=== PATIENT | female | born 1955 | race Caucasian/White ===

== ENCOUNTER 2016-06-14 09:35 | Inpatient (IN) | payer OTHER ==
[2016-06-14] VITALS (10 sets, daily range): BP systolic 103–143; BP diastolic 51–91; PULSE 60–99; RESP 12–18; O2SAT 94–97
[~2016-06-14] VITALS: Ht 165.1 cm; Wt 104.0 kg
[~2016-06-14 09:35] MED LIST: CeFAZolin Inj 2 GM in IV Premix 1 EACH IV ONE; DICL75TA6 PO; DULO60CA42 PO; FLUT16SP NS; THYR90TA PO; Vancomycin Inj 1,500 MG in 0.9% Sodium Chloride 500 ML IV ONE; probiotic
[2016-06-14] MEDS ORDERED: CeFAZolin Inj 2 gm / 50mL D5W IV ONE (09:36)
[2016-06-14] MEDS: Lactated Ringer's 1,000 ML IV SCH ×3 (09:38→19:29)
[2016-06-14] MEDS ORDERED: TYLENOL PO (09:56)
[2016-06-14] MEDS ORDERED: MARIJUANA INHALATION (09:56)
[2016-06-14] MEDS ORDERED: ALPR0.5T PO (09:56)
[2016-06-14] MEDS ORDERED: Bupivacaine Liposome 1.3% 20 mL Inj NERVEBLOCK ONE (10:35)
[2016-06-14] MEDS ORDERED: Vancomycin 1 Gm/200 mL NS Premix IV ONE (10:40)
[2016-06-14] MEDS ORDERED: Acetaminophen IV 1,000 mg IV ONE (10:40)
[2016-06-14] MEDS ORDERED: Tranexamic Acid 100 mg/mL 10 mL Inj ONE (10:53)
[2016-06-14] MEDS ORDERED: Lactated Ringer's 1,000 ML IV SCH (10:54)
[2016-06-14] MEDS ORDERED: 0.9% Sodium Chloride 200 ML ONE (10:54)
[2016-06-14] MEDS ORDERED: Lactated Ringer's 500 ML IV PRN (10:54)
--- NOTE | 2016-06-14 10:54 | PCM.HPANE ---
Patient Data Date of Service: Jun 14, 2016 (2235) Surgeon Admitting Provider: Attending Provider:Ubaldo Mckay DO Primary Care Physician:Lavonne Luis PA-C Other Provider:Augustine Gann Anesthesia Reason for Visit Left Knee Arthritis Ht/WT & BMI Height (Feet): 5 Height (Inches): 5.00 Weight (Kilograms): 102.0 Body Mass Index 37.00 Allergies Coded Allergies: codeine (Verified Allergy, Unknown, 06/13/16) Past Anesthesia History Anesthesia History: Denies:: Anesthesia Reactions Diabetes History Hx Diabetes?: No Medications Home Meds Incl Beta Amado: No Reported Medications [Tylenol] No Conflict Dxmut293 Mg PO PRN 06/14/16 [Marijuana] No Conflict Check Inhalation Prn 06/14/16 Alprazolam (Xanax)0.5 Mg Tablet0.5 Mg PO TID PRN For Anxiety Ref 0 06/14/16 [probiotic] No Conflict CheckUnknown Dose DAILY 06/09/16 Fluticasone Propionate (Fluticasone Propionate Nasal)16 Gm [place].susp2 [place] NS BID #16 GM Ref 0 06/09/16 Diclofenac ER 75 Mg [id number] Mg PO BID 06/09/16 Duloxetine (Cymbalta)60 Mg Capsule.dr60 Mg PO DAILY Ref 0 06/09/16 Thyroid,Pork ([place] Thyroid)90 Mg [id number] Mg PO DAILY 06/09/16 History History of ENT Problems?: Yes HEENT History: Positive for:: TMJ (wears nightguard) Denture Type: None Teeth Condition: Within Normal Limits Hx of Heart Problems?: No Cardiovascular History: Denies:: Coronary Artery Disease Irregular Heartbeat Hx of Respiratory Problem?: No Respiratory History: Denies:: Oxygen Administration Use of C-PAP Machine Hx Neurologic Problems?: Yes Neurological History: Positive for:: Headaches (optical migraines) Denies:: CVA Multiple Sclerosis Parkinson's Disease Seizures Hx of GI Problems?: Yes Other GI Pertinent History: prior hx of gastric bypass, gastric band, band removal Hx of Problems?: No Female Hx: Denies:: Currently Skin History: Positive for:: 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) Hx Musculoskeletal Problems?: Yes Musculoskeletal History: Positive for:: Fibromyalgia Musculoskeletal Trauma (left knee current admission problem) Osteoarthritis Hx of Psycho/Social Problems?: Yes Hx Surgeries?: Yes (shoulder ligament, gastric bypass, band removal, ) Hx Any Other Health Problems?: Yes Other History: Positive for:: Thyroid Disease Denies:: Cancer Hx Diabetes: No Hx Alcohol Use: YesAlcoholic Drinks Per Day: 2-3 glasses wine weeklyHx Substance Use: Yes (cannabis)Have You Smoked inLast 12 mo: No Stop/Bang S-Snoring: Do You Snore Loudly: No T-Tired: feel tired, fatigued: No O-Obsered: Observed not breath: No P-Blood Pressure: treated: No B- Body Mass Index > 35 kg/m2: Yes A- Age over 50: Yes N- Neck Large Circumference: No G- Gender Male: No JIMMIE Total Score: 2 JIMMIE Risk Assessment: Low Risk, <3 Yes Risk Assessment Category Category 1A: Patient has history of documented sleep apnea, and HAS NOT received any narcotic, sedative or anesthesia administration during this stay. Category 1B: Patient has history of documented sleep apnea, and HAS received any narcotic , sedative or anesthesia administration during this stay Category 2: Patient has SUSPECTED Obstructive Sleep Apnea, and HAS received any narcotic , sedative or anesthesia administration during this stay. Category 3: Patient has SUSPECTED Obstructive Sleep Apnea and HAS NOT received narcotic, sedative or anesthesia administration during this stay. Category 4: Outpatient in Procedural Areas with known sleep apnea or who screen positive for High Risk via the STOP/BANG questionnaire. Exam Exam Vital Signs Vital Signs Date Time Temp Pulse Resp B/P Pulse Ox O2 Delivery O2 Flow Rate FiO2 06/14/16 10:09 36.9 82 18 119/91 95 Room Air General Appearance: Alert, Oriented X3, Moderate Distress (anxiety wrt piv access) HEENT/AIRWAY: MP 1 Lungs: Crackles Heart: Exam Unremarkable Meds/Labs/Diagnostics Admission Meds Current Medications Lactated Ringer's (Lr) 1,000 ml @ 120 mls/hr Q8H20M IV Last administered on t 09:38; Start 06/14/16 at 05:00; Stop 06/14/16 at 13:19 Plan Impression Patient chart reviewed, patient interviewed and anesthestic plan with risks, benefits, and alternatives discussed, and informed consent obtained. NPO per Anesth. Guidelines: Yes ASA Physical Status: ASA2 Mod Systemic Disease Anesthetic Plan: GA, Regional Block (femoral SS), Ultra Sound Bene/Risks/Altern/Consents: Yes HP Complete Prior to Induction: Yes Joseph Gonzales MD Jun 14, 2016 10:54
[2016-06-14] MEDS ORDERED: Phenylephrine 10,000 mCg/mL Inj IVPUSH PRN (10:55)
[2016-06-14] MEDS ORDERED: Ondansetron 2 mg/mL 2 mL Inj IVPUSH PRN ×2 (10:55→13:55)
[2016-06-14] MEDS ORDERED: EPHEDrine Sulfate 50 mg/mL Inj IVPUSH PRN (10:55)
[2016-06-14] MEDS ORDERED: MetoCLOpramide 5 mg/mL 2 mL Inj IVPUSH PRN (10:55)
[2016-06-14] MEDS ORDERED: HYDROmorphone 1 mg/mL Inj IVPUSH PRN (10:55)
[2016-06-14] MEDS ORDERED: Dexamethasone 4 mg/mL Inj IVPUSH PRN (10:55)
[2016-06-14] MEDS ORDERED: MethylprednisoLONE Depot 80 mg/mL Inj INJ ONE (11:36)
[2016-06-14] MEDS ORDERED: Lactated Ringer's 1,000 ML IV ONE (12:17)
[2016-06-14] MEDS ORDERED: Bupivacaine Liposome 1.3% 20 mL Inj INFILTRATE ONE ×2 (12:18→12:50)
[2016-06-14] MEDS ORDERED: 0.9% Sodium Chloride 10 mL Inj INFILTRATE ONE ×2 (12:19→12:50)
[2016-06-14] MEDS ORDERED: Bupivacaine-MPF 0.25%/EPI 30 mL Inj INJ ONE (12:51)
[2016-06-14] MEDS ORDERED: Magnesium Hydroxide 10 mL Oral Concentration PO PRN (13:55)
[2016-06-14] MEDS ORDERED: Polyethylene Glycol (PEG) 17 Gm Powder PO PRN (13:55)
[2016-06-14] MEDS ORDERED: diphenhydrAMINE 25 mg Capsule PO PRN (13:55)
[2016-06-14] MEDS ORDERED: ALPRAZolam 0.5 mg Tablet PO PRN (14:00)
--- NOTE | 2016-06-14 14:07 | PCM.ANEP1 ---
Post Anesthesia Phase 1 PACU Phase 1 Assessment Date of Service: Jun 14, 2016 (1050) Vital Signs 143/76, 99%, 88, 24, 36.7 Vital Signs Date Time Temp Pulse Resp B/P Pulse Ox O2 Delivery O2 Flow Rate FiO2 06/14/16 10:09 36.9 82 18 119/91 95 Room Air Anesthetic Administered: GA Level of Alertness: Awake, talking MARSHALL's with Equal Strength: Yes Pain: Yes Pain Scale Score: 10 Nausea or Vomiting: No Cardiovascular Function and Hy: Yes Oxygen Delivery: Room Air Lungs: Crackles Dermatome Level: Full Sensation Summary UNEVENTFUL GA. PT QUITE PAINFUL IN PACU. Complications: Yes Follow up Care: No Joseph Gonzales MD Jun 14, 2016 14:07
[2016-06-14] MEDS: fentaNYL-PF 50 mCg/mL 2 mL Inj IVPUSH PRN ×2 (14:10→14:20)
[2016-06-14] MEDS ORDERED: Ketamine 10 mg/mL 20 mL Inj IV PRN ×2 (14:15→15:20)
--- NOTE | 2016-06-14 15:08 | DRSVH ---
PROCEDURE: X-RAY LEFT KNEE, ONE OR TWO VIEWS ([id number]) INDICATIONS: post op TECHNIQUE: 2 views of the knee were acquired. COMPARISON: [facility], , XR KNEE ARTHRITIC SERIES LT, 05/04/2016, 13:48. FINDINGS: Expected postoperative changes are present within the soft tissues of the left knee with scattered ar eas of soft tissue air, soft tissue edema, and a joint effusion. Overlying bandage is seen along the anterior margin of the knee. No unexpected radiopaque foreign bodies are evident. Postoperative ch anges are noted related to a total left knee arthroplasty. No periprosthetic fractures or other bony abnormalities are appreciated. IMPRESSION: Expected postoperative changes related to a left total knee arthroplasty. Dictated by: Oz Jaimes M.D. on 06/14/2016 at 14:05 Approved by: Oz Jaimes M.D. on 06/14/2016 at 14:06
[2016-06-14] MEDS ORDERED: Glycopyrrolate 0.2 MG/ML 1mL Inj ONE (15:33)
[2016-06-14] MEDS ORDERED: Ketamine 10 mg/mL 20 mL Inj ONE (15:33)
[2016-06-14] MEDS ORDERED: fentaNYL-PF 50 mCg/mL 2 mL Inj ONE (15:33)
[2016-06-14] MEDS ORDERED: Propofol 10,000 mCg/mL 20 mL Inj ONE (15:33)
[2016-06-14] MEDS ORDERED: HYDROmorphone 2 mg/mL Inj ONE (15:33)
[2016-06-14] MEDS ORDERED: Ondansetron 2 mg/mL 2 mL Inj ONE (15:33)
[2016-06-14] MEDS: Sodium Chloride LOK Flush 10 mL Syringe IV SCH (16:30)
[2016-06-14] MEDS: ARMOUR THYROID 90 MG PO SCH (17:00)
[2016-06-14] MEDS: HYDROmorphone 0.5 mg/0.5 mL iSecure Syringe IVPUSH PRN ×2 (17:15→21:04)
[2016-06-14] MEDS: 0.9% Sodium Chloride 1,000 ML IV SCH ×2 (17:20→23:51)
[2016-06-14] MEDS: DULoxetine 30 mg DR Capsule PO SCH (18:41)
--- NOTE | 2016-06-14 19:34 | NUR ---
Post Op Patient received to room 1017 s/p left knee surgery. Patient with obdulio wrap dressing noted form thigh to foot. patient with very cold feet but palp dp pulses. Patient with pain 6/10 squirming in bed . Pt then did settle down and nap for awhile. Valium and iv push Dilaudid given for pain control.
[2016-06-14] MEDS: Fluticasone 0.05% 15 Spray/2 Gm 16 Gm Nasal Spray NASAL SCH (20:30)
[2016-06-14] MEDS: CeFAZolin Inj 2 GM in IV Premix 1 EACH IV SCH (21:11)
[2016-06-14] MEDS: oxyCODONE-Acetamin 5-325 mg Tablet PO PRN (21:25)
[2016-06-14] MEDS: Senna-Docusate 8.6-50 mg Tablet PO SCH (21:25)
--- NOTE | 2016-06-14 21:57 | OP ---
[address] [address] OPERATIVE REPORT PATIENT: DEBRA GUEVARA : 1955 MR#: [id number] ADMIT: 06/14/2016 JOB ID: [id number] DATE OF SURGERY: 06/14/2016 PREOPERATIVE DIAGNOSIS(ES): Left knee degenerative arthritis as well as right knee degenerative arthritis. POSTOPERATIVE DIAGNOSIS(ES): Left knee degenerative arthritis as well as right knee degenerative arthritis PROCEDURE: 1. Left total knee arthroplasty. 2. Right knee cortisone injection. SURGEON: Ubaldo Mckay DO. ANESTHESIA: General with femoral nerve block. INDICATIONS: The patient is a 60-year-old female with left knee severe degenerative arthritis, as well as right knee arthritis, who has failed conservative measures and wished to proceed with a left total knee arthroplasty and wished to proceed with a right knee cortisone injection in order to aid with her rehabilitation process. We discussed the risks, benefits, and possible complications of surgery, including but not limited to, injury to nerves and vessels, infection, bleeding, incomplete relief of symptoms, stiffness, need for additional procedures, infection. 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 The patient had good understanding. All questions were answered and she wished to proceed. A surgical services tech was required for the successful completion of this procedure. PROCEDURE IN DETAIL: The patient was brought to the operating room. She was given a general anesthetic as well as femoral nerve block. The left lower extremity was sterilely prepped and draped and a tourniquet was used for hemostasis. An incision was made over the anteromedial knee. Dissection was carefully carried through subcutaneous tissue and electrocautery was used for hemostasis. A split was then made in the quad tendon leaving a cuff of tissue for repair. This was taken along the medial retinaculum and down onto the proximal medial tibial face. The patella was everted and the portion of the anterior horn medial and lateral menisci were removed. The femur was then instrumented with the intramedullary reamer and the intramedullary femoral cutting guide. A 5 degree distal valgus cut angle was chosen and 10 mm planned resection. The block was pinned into position and the cut was performed. Next, the tibia was addressed with an extramedullary tibial cutting guide. This was placed parallel to the long axis of the tibia, pinned into position and the cut was performed, completed with an osteotome. Next, the femur was sized and felt to be a size 6 and the 3 degree external rotation was placed, and the pins were placed. The four-in-one cutting block was then placed and the distal femoral cuts were completed. I also did some posterior release with the osteotome posteriorly to get the posterior femoral condyles. Next, the box cut was made in the femur and a trial was performed with the 6 femur and trials were performed of the tibia. We elected to go with a 5 tibia which seemed to fit quite nicely and rotation was marked. The femur was drilled. The tibia was then drilled and punched, and we went up to the 8 mm thickness poly which seemed to allow for full flexion, full extension with equal gaps medially and laterally in a well-balanced knee. The patella was then resurfaced with a free hand-type technique, cut from an initial thickness of about 20 to a thickness of 14. A 35 mm patellar button was chosen, drilled for and trialed and had excellent tracking. The components were then removed. The bony surfaces were washed and dried, and the components were then cemented into position beginning with the DePuy Attune 5 fixed bearing tibia, followed by the 6 narrow femur and an 8 mm thickness poly as well as 35 mm patellar button. The tourniquet was let down and all excess cement was removed, of course, and electrocautery was used for hemostasis. The wound was copiously irrigated and then closed with interrupted #1 Surgilon and 0-Vicryl. The subcu was closed with 2-0 and the skin was closed with a running 2-0 V-Loc followed by 3-0 V-Loc. Naropin was added as an adjunct local anesthetic. Sterile dressings were applied. Patient tolerated the procedure well. Also of note, the patient received 1 g TXA prior to incision and a 2nd g at closing time. Postoperative protocol: Have the patient weight bear to tolerance. Use a walker for ambulation. Ice and elevate. Will plan to manage pain aggressively with Percocet, oxycodone and IV Tylenol which was given intraop as well as Toradol and Valium for spasms. Plan for aspirin for DVT prophylaxis. The patient is refusing injections. PROCEDURE #2: The right knee was sterilely prepped and injected with 80 mg of Depo-Medrol and 3 cc of 0.25% Marcaine plain. The patient tolerated the procedure well. Blood loss was 50 cc for the total knee procedure.
[2016-06-14] MEDS: hydrOXYzine Pamoate 25 mg Capsule PO PRN (22:32)
--- NOTE | 2016-06-14 22:52 | NUR ---
Pain Pt continues to have off and on left knee pain. She rates her pain at a 6. Given IV toradol. PO oxycodone (5mg) and vistaril (25mg). Her left knee has ice to it and her heel is floated on the bed. Will monitor for effectiveness.
[2016-06-15] MEDS: Sodium Chloride LOK Flush 10 mL Syringe IV SCH ×3 (00:30→16:20)
[2016-06-15 01:31] VITALS: BP 99/63; PULSE 50; RESP 16; O2SAT 98
[2016-06-15] MEDS: CeFAZolin Inj 2 GM in IV Premix 1 EACH IV SCH (04:45)
[2016-06-15] MEDS: 0.9% Sodium Chloride 1,000 ML IV SCH ×2 (04:48→19:51)
[2016-06-15] MEDS: ARMOUR THYROID 90 MG PO SCH (04:50)
[2016-06-15 06:00] VITALS: BP 109/75; PULSE 50; RESP 16; O2SAT 97
[2016-06-15 07:15] LABS: BASOPHILS % (AUTO) 0.2 % (0-3); EOSINOPHILS % (AUTO) 0.6 % (0-5); MONOCYTES % (AUTO) 8.6 % (4-12); Mean Corpuscular Volume 91.9 fL (81-100); Platelet Count 239 bil/L (150-400)
[2016-06-15] MEDS: Fluticasone 0.05% 15 Spray/2 Gm 16 Gm Nasal Spray NASAL SCH ×2 (08:30→18:20)
--- NOTE | 2016-06-15 08:41 | PCM.PNORTH ---
Subjective Date of Service: Jun 15, 2016 Visit Information: Reason for Visit Left Knee Arthritis Surgery/Surgery Date L TKA 06/14/16 Post-Op Day # Date of Admission: Jun 14, 2016 at 15:16 Hospital Day # Subjective Found patient awake and alert this morning. No complaints of pain at this time. Discussed participation with therapy and patient's discharge plans, etc.. Patient is residing with her elderly mother which will not be of any help regarding her mobility. Patient also discusses that she has been on some amount of chronic pain medication for her knee for many years including Vicodin 5/325 and Percocet/325 as well as nonsteroidal anti-inflammatories and Tylenol. I have discussed with her today that we will need to make a plan to manage her pain with a level of medication likely slightly higher than she has been on and she is understanding of this. Patient indicates that Vicodin or hydrocodone no longer works well for and she would prefer Percocet. We also discussed moving away from IV pain medication as soon as possible today in anticipation of discharge tomorrow on postop day #2, 06/16/2016. Postop General: No Complaints, No Shortness of Breath, No Chest Pain Pain Management: PO, IV Push Objective Exam Objective Alert and oriented 3 and pleasant. Interoperative dressing is clean dry and intact. Calf and thigh are soft and nontender. Toe wiggle and sensation are intact at the left lower extremity distally. SCD is in place at right lower extremity. Pisano is present and working No gait yet as of this time. Vital Signs and I/O Vital Sign - Last Date Time Temp Pulse Resp B/P Pulse Ox O2 Delivery O2 Flow Rate FiO2 06/15/16 06:00 36.8 50 16 109/75 97 Room Air 06/14/16 15:47 2.00 Intake and Output 06/14/16 06/14/16 06/15/16 Cumulative From/Thru 15:00 23:00 07:00 06/09/16 10:52 - 06/15/16 06:32 Intake Total 2070 ml 200 ml 1305 ml 3575 ml Output Total 600 ml 200 ml 2100 ml 2900 ml Balance 1470 ml 0 ml -795 ml 675 ml Intake Oral 200 ml 500 ml 700 ml IV Total 2070 ml 805 ml 2875 ml Output Urine Total 550 ml 200 ml 2100 ml 2850 ml Estimated Blood Loss 50 ml 50 ml Lab & Micro Results Laboratory Tests Test 06/15/16 06:55 White Blood Count 10.2th/mm3 (3.8-10.1) Red Blood Count 3.93mil/mm3 (3.90-5.20) Hemoglobin 11.8g/dL (12.0-15.6) Hematocrit 36.1% (35.0-46.0) Mean Corpuscular Volume 91.9fL (81-100) Mean Corpuscular Hemoglobin 30.0pg (27.0-35.0) Mean Corpuscular Hemoglobin Concent 32.7% (32.0-37.0) Red Cell Distribution Width 14.9% (12.3-15.4) Platelet Count 239bil/L (150-400) Neutrophils (%) (Auto) 79.0% (40-74) Lymphocytes (%) (Auto) 11.5% (14-46) Monocytes (%) (Auto) 8.6% (4-12) Eosinophils (%) (Auto) 0.6% (0-5) Basophils (%) (Auto) 0.2% (0-3) Sodium Level 140mEq/L (134-144) Potassium Level 4.3mEq/L (3.5-5.2) Chloride Level 102mEq/L (97-108) Carbon Dioxide Level 25mmol/L (18-29) Blood Urea Nitrogen 9mg/dL (8-27) Creatinine 0.44mg/dL (0.57-1.00) Estimat Glomerular Filtration Rate 208mL/min (>59) Glucose Level 113mg/dL (60-99) Calcium Level 9.2mg/dL (8.5-10.1) Result Diagram: 06/15/16 0655 06/15/16 0655 General Appearance: Alert, Oriented X3, Cooperative, No Acute Distress Extremities: No Compartment Syndrom Noted, Thigh & Calf Soft/Nontender Postop Sensory Motor: Distal Motor Intact, Movement in Toes, Distal Sensation Intact Activity: Activity per PT, Ambulate with PT (weight-bear as tolerated at the left lower extremity using front wheeled walker.) Catheters: Urethral 2 Way Pisano Assessment & Plan Impression Patient is a 60-year-old female who has undergone elective left total knee arthroplasty and right knee steroid injection on 06/14/2016. She is a long history of left knee pain and has an on a number of narcotic and nonnarcotic pain medications over that time to control her discomfort. Patient has not arranged formal physical therapy yet as of this time but does have a prescription. Problems: Plan Postop day #1 from left total knee arthroplasty and right knee intra-articular steroid injection performed on 06/14/[address] Ubaldo Mckay. Weightbearing as tolerated on the left lower extremity using front wheeled walker. Continue formal physical therapy for mobility, gait and safety. Patient does have a prescription for formal therapy but has not arrange this as of this time. Patient was advised to do this as soon as possible by phone. Patient is requesting home health PT for 1 week stating that she has no one to drive her to therapy. Patient resides with her elderly mother who is not able to drive her. Physical therapy has spell the patient regarding this and is in favor of this plan. coordinator of rehabilitation services will speak with patient today about this as well. Continue by mouth pain medication as needed and plan on Percocet 5/325 or 7.5/ 325 as primary pain medication with Vistaril. May use her oxycodone 5 mg for breakthrough. Lovenox 40 mg subcutaneous daily 2 weeks with transition to ASA 325 mg EC by mouth twice a day 4 weeks totaling 6 weeks postop for DVT prophylaxis. Interoperative dressing will be changed on postop day #2. Continue right lower extremity SCD. Nursing please discontinue IV pain medication as soon as possible and moved patient to by mouth pain meds. IV Tylenol is the exception and I would use this today only. Ordered and I would use this today. Nursing please discontinue Pisano today after first PT session. Nursing please measure and fit bilateral thigh-high ALETHA hose which will be ordered today. Follow-up in 2 weeks at [facility] orthopedic clinic on prearranged appointment with mid-level provider for wound check and suture removal. Follow-up in 6 weeks at [facility] orthopedic clinic on prearranged appointment with Dr. Ubaldo Mckay with left two-view knee x-rays on arrival. Anticipate discharge to home on postop day #2, 06/16/2016. VTE Prophylaxis: Sub-Q Enoxaparin (Lovenox 40 mg subcutaneous daily 2 weeks postop with transition to ASA 325 mg EC by mouth twice a day for 4 weeks postop her leg 6 weeks postoperative prophylaxis), SCDs (right lower extremity only), ALETHA Carreno (bilateral thigh-high) Pawel Mcclain PA-C Jun 15, 2016 08:40
[2016-06-15] MEDS: Senna-Docusate 8.6-50 mg Tablet PO SCH ×2 (09:21→20:12)
[2016-06-15] MEDS: DULoxetine 30 mg DR Capsule PO SCH (09:21)
[2016-06-15] MEDS: HYDROmorphone 0.5 mg/0.5 mL iSecure Syringe IVPUSH PRN (09:27)
--- NOTE | 2016-06-15 09:29 | NUR ---
Pain Pt worked with PT this a.m. After that session, pt c/o pain that was 8/10 and stated it was climbing. Administered 0.5 mg IVP Dilaudid. Will reassess pt and determine other medications and/or interventions to help make pt more comfortable. Pt sitting up in bed and eating breakfast now. Care continues.
--- NOTE | 2016-06-15 11:05 | NUR ---
Social Work-screening/ readiness for discharge: Data:EMR Reviewed. Pt is a 60 y/o female who was admitted on 06/14/16 for left knee per H&P. Pt's insurance is [employer] and PCP is Lavonne Aranda.EMR Reviewed. SW met with pt to discuss discharge planning, SW role explained. Pt is alert and oriented x3. Pt resides at home alone,but will be staying with her mom in [place] at discharge. Pt has a ramp to enter home. Pt drives and has a fww to use. Pt has no HH history or SNF history. SW discussed DPOA/ advanced directive, pt confirms she has completed this, SW encouraged a copy to be brought in. PT worked with pt and they are recommending home with HH Services. HH choice list provided. Pt would like a referral to [facility]. NESS explained SW would call [facility] to determine if they contract with pt's insurance. NESS called [facility] [phone] and left message requesting a return call. Pt's friend Charlene to provide transport home. SW provided phone number and plan on white board in room. F2F in folder. SW will continue to follow. Assessment:Pt who would benefit from HH. Plan:Pt to discharge home with mom when medically stable. PT recommending home with HH. NESS left a message for [facility], awaiting a return call. F2F in folder. SW will continue to follow. JHONATAN Chi
[2016-06-15 11:57] VITALS: BP 99/62; PULSE 69; RESP 16; O2SAT 99
--- NOTE | 2016-06-15 12:34 | NUR ---
choice list provided. JHONATAN Chi
[2016-06-15] MEDS: oxyCODONE-Acetamin 5-325 mg Tablet PO PRN ×3 (13:08→21:32)
[2016-06-15] MEDS: hydrOXYzine Pamoate 25 mg Capsule PO PRN ×2 (13:13→20:13)
--- NOTE | 2016-06-15 13:14 | NUR ---
Social Work-readiness for discharge: Data:EMR Reviewed. Pt is on day 1 of hospitalization for left knee per H&P. Pt is not medically stable anticipate tomorrow. PT has seen pt and recommended home with . NESS received a call back from [facility] who confirms they do accept pt's insurance, but are out for services for 2 weeks. NESS spoke with Blake from [facility] who confirms they care accept pt's insurance and have next day available. NESS provided access in [facility]. NESS updated pt at bedside that [facility] is not able to see pt for 2 weeks, but [facility] can see pt next day. Pt is agreeable to this plan. SW provided her with phone number for [facility]. F2F in folder. SW will continue to follow. Assessment:Pt who would benefit from . Plan:Pt to discharge to home with mom when medically stable. Referral made to [facility] for PT. F2F in folder. SW will continue to follow. JHONATAN Chi
[2016-06-15 21:20] VITALS: BP 95/56; PULSE 93; RESP 18; O2SAT 93
[2016-06-16] MEDS: Sodium Chloride LOK Flush 10 mL Syringe IV SCH ×3 (01:07→16:30)
[2016-06-16] MEDS: hydrOXYzine Pamoate 25 mg Capsule PO PRN ×4 (01:09→22:52)
[2016-06-16] MEDS: oxyCODONE-Acetamin 5-325 mg Tablet PO PRN ×6 (01:09→22:52)
[2016-06-16] MEDS: oxyCODONE ER 10 mg ER12 Tablet PO SCH ×2 (02:59→14:54)
[2016-06-16 05:15] VITALS: BP 114/71; PULSE 68; RESP 16; O2SAT 96
[2016-06-16] MEDS: 0.9% Sodium Chloride 1,000 ML IV SCH ×2 (05:51→15:38)
--- NOTE | 2016-06-16 06:16 | NUR ---
Pain Patient was having difficulty controlling pain this shift. Patient was given Roxycodone 10mg, alternated with Percocet 1 tab, and Toradol for pain. In addition patient was receiving Vistaril, and Valium. Patient continued to state that nothing was really helping with her pain or anxiety. Dr. Mckay was contacted and ordered Oxycontin 10mg BID for pain. Patient's mother Jackelyn Hooks called concerned about daughter's pain management. The patient's mother was reassured that the patient was getting good care and that the physician had been contacted and was placing additional orders for pain medication. The patient's mother said thank you and seemed to be reassured by the conversation. Patient's pain level after receiving Oxycontin went down from a 9 to a 6/10. Patient was able to get some rest. Patient on room air, 95% with continuos pulse oximeter on.
[2016-06-16 06:30] LABS: BASOPHILS % (AUTO) 0.4 % (0-3); EOSINOPHILS % (AUTO) 2.1 % (0-5); MONOCYTES % (AUTO) 13.4 % (4-12); Mean Corpuscular Hemoglobin 29.9 pg (27.0-35.0); Mean Corpuscular Volume 92.2 fL (81-100); NEUTROPHILS % (AUTO) 61.3 % (40-74); Platelet Count 242 bil/L (150-400)
[2016-06-16] MEDS: ARMOUR THYROID 90 MG PO SCH (06:30)
[2016-06-16] MEDS: Fluticasone 0.05% 15 Spray/2 Gm 16 Gm Nasal Spray NASAL SCH ×2 (08:30→20:02)
[2016-06-16] MEDS: DULoxetine 30 mg DR Capsule PO SCH ×2 (08:53→08:55)
[2016-06-16] MEDS: Senna-Docusate 8.6-50 mg Tablet PO SCH ×2 (08:55→20:00)
[2016-06-16 12:06] VITALS: BP 117/78; PULSE 72; RESP 16; O2SAT 97
--- NOTE | 2016-06-16 14:25 | PCM.PNORTH ---
Subjective Date of Service: Jun 16, 2016 Visit Information: Reason for Visit Left Knee Arthritis Surgery/Surgery Date L TKA 06/14/16 Post-Op Day # Date of Admission: Jun 14, 2016 at 15:16 Hospital Day # Subjective Status post day #2 left total knee arthroplasty. Patient's biggest complaint is having a hard time controlling pain. States that it is still not controlled but doing maybe a little bit better than yesterday. The only thing that has given her relief is the OxyContin. She states she has been on pain medicine for 20-30 years. She is using the restroom, has worked well with physical therapy, urinating on around, but pain control has been quite concerning and nervous about being discharged. Postop General: No Complaints, No Shortness of Breath, No Chest Pain Pain Management: PO, IV Push Objective Exam Objective Patient is alert and oriented 3. Answering questions appropriately. Patient is sitting up in the bed and in some acute distress today. Dressing is clean dry and intact. Calf is soft and nontender. Sensation and pulses intact, patient able to wiggle toes. Patient is quite sensitive to all movement but tolerates the dressing exchange well. Upon removing the dressing, dressing has no discharge. Incision healing very well. No erythema. Vital Signs and I/O Vital Sign - Last Date Time Temp Pulse Resp B/P Pulse Ox O2 Delivery O2 Flow Rate FiO2 06/16/16 12:06 36.7 72 16 117/78 97 Room Air 06/14/16 15:47 2.00 Intake and Output 06/15/16 06/15/16 06/16/16 Cumulative From/Thru 15:00 23:00 07:00 06/09/16 10:52 - 06/16/16 06:49 Intake Total 1320 ml 800 ml 5695 ml Output Total 950 ml 2750 ml 6600 ml Balance 370 ml -1950 ml -905 ml Intake Oral 1320 ml 800 ml 2820 ml IV Total 2875 ml Output Urine Total 950 ml 2750 ml 6550 ml Estimated Blood Loss 50 ml # Bowel Movements 0 0 Lab & Micro Results Laboratory Tests Test 06/16/16 05:50 White Blood Count 7.5th/mm3 (3.8-10.1) Red Blood Count 3.71mil/mm3 (3.90-5.20) Hemoglobin 11.1g/dL (12.0-15.6) Hematocrit 34.2% (35.0-46.0) Mean Corpuscular Volume 92.2fL (81-100) Mean Corpuscular Hemoglobin 29.9pg (27.0-35.0) Mean Corpuscular Hemoglobin Concent 32.5% (32.0-37.0) Red Cell Distribution Width 15.2% (12.3-15.4) Platelet Count 242bil/L (150-400) Neutrophils (%) (Auto) 61.3% (40-74) Lymphocytes (%) (Auto) 22.7% (14-46) Monocytes (%) (Auto) 13.4% (4-12) Eosinophils (%) (Auto) 2.1% (0-5) Basophils (%) (Auto) 0.4% (0-3) Sodium Level 140mEq/L (134-144) Potassium Level 4.2mEq/L (3.5-5.2) Chloride Level 101mEq/L (97-108) Carbon Dioxide Level 26mmol/L (18-29) Blood Urea Nitrogen 11mg/dL (8-27) Creatinine 0.51mg/dL (0.57-1.00) Estimat Glomerular Filtration Rate 175mL/min (>59) Glucose Level 112mg/dL (60-99) Calcium Level 8.9mg/dL (8.5-10.1) Result Diagram: 06/16/16 0550 06/16/16 0550 Activity: Activity per PT, Ambulate with PT (weight-bear as tolerated at the left lower extremity using front wheeled walker.) Catheters: Urethral 2 Way Pisano Assessment & Plan Impression Status post day #2 left total knee arthroplasty. Patient doing well with therapy, but pain control is an issue due to her chronic narcotic use. Patient seemed to do better today with the recommendation by Dr. scott to use Valium as well as OxyContin 10 mg twice a day on top of the current Percocet use to better control pain. Problems: Plan Patient will continue to work with physical therapy, weightbearing as tolerated , gait training with front wheeled walker. Patient will continue Lovenox 40 mg subcutaneous daily 3 weeks, then aspirin 325 mg by mouth twice a day thereafter for 6 weeks of DVT prophylaxis. Patient will continue to have daily Valium for anxiety as needed, Percocet 10 mg on a scheduled basis, with addition of OxyContin 10 mg twice a day for pain control. Patient may also utilize plain oxycodone in between Percocet doses to control the pain. Dr. Scott recommending discharge with OxyContin 10 mg twice a day for 2 weeks, as well as prescription for Valium. Patient will remain in the hospital 1 more day to ensure pain control will be sufficient on current regimen. Anticipate discharge to home tomorrow, patient will need follow-up at 2 weeks at [facility]. Dressing changed today. VTE Prophylaxis: Sub-Q Enoxaparin (Lovenox 40 mg subcutaneous daily 2 weeks postop with transition to ASA 325 mg EC by mouth twice a day for 4 weeks postop her leg 6 weeks postoperative prophylaxis), SCDs (right lower extremity only), ALETHA Carreno (bilateral thigh-high) Dontrell Edmondson PA-C Jun 16, 2016 14:25
[2016-06-16 21:52] VITALS: BP 105/68; PULSE 89; RESP 16; O2SAT 94
[2016-06-17] MEDS: Sodium Chloride LOK Flush 10 mL Syringe IV SCH ×2 (00:30→08:30)
[2016-06-17] MEDS: oxyCODONE-Acetamin 5-325 mg Tablet PO PRN ×4 (01:43→12:03)
[2016-06-17] MEDS: 0.9% Sodium Chloride 1,000 ML IV SCH ×2 (01:47→11:51)
[2016-06-17] MEDS: oxyCODONE ER 10 mg ER12 Tablet PO SCH ×2 (02:49→15:05)
--- NOTE | 2016-06-17 03:57 | NUR ---
Pain / mobility Pain management continues to be a concern to the patient. Oral meds kept on around the clock schedule for optimal management. Pt observed sleeping and able to wake easily for meds; declined some of the planned pain meds at 0245, able to sleep again. Providing supportive care and ice packs for additional comfort. Pt moving well, able to transfer to BSC and walk to BR with FWW. Hourly rounding ongoing.
[2016-06-17] MEDS: ARMOUR THYROID 90 MG PO SCH (05:08)
[2016-06-17] MEDS: hydrOXYzine Pamoate 25 mg Capsule PO PRN ×3 (05:09→13:35)
[2016-06-17 05:40] VITALS: BP 109/72; PULSE 65; RESP 16; O2SAT 96
[2016-06-17] MEDS: Fluticasone 0.05% 15 Spray/2 Gm 16 Gm Nasal Spray NASAL SCH (09:02)
[2016-06-17] MEDS: DULoxetine 30 mg DR Capsule PO SCH (09:02)
[2016-06-17] MEDS: Senna-Docusate 8.6-50 mg Tablet PO SCH (09:02)
[2016-06-17 09:45] VITALS: BP 106/70; PULSE 71; RESP 20; O2SAT 97
--- NOTE | 2016-06-17 10:41 | PCM.PNORTH ---
Subjective Date of Service: Jun 17, 2016 Visit Information: Reason for Visit Left Knee Arthritis Surgery/Surgery Date L TKA 06/14/16 Post-Op Day # Date of Admission: Jun 14, 2016 at 15:16 Hospital Day # Subjective Status post day #3 left total knee arthroplasty. Patient states she is feeling much better today, very happy that her pain has been well controlled. Has worked very well with physical therapy has said she is able to go home. Would like to do so today. Postop General: No Complaints, No Shortness of Breath, No Chest Pain Pain Management: PO, IV Push Objective Exam Objective Patient is alert and oriented 3. Answering questions appropriately. Patient is sitting up in the bed and not in acute distress today. Dressing is clean dry and intact. Calf is soft and nontender. Sensation and pulses intact, patient able to wiggle toes. Vital Signs and I/O Vital Sign - Last Date Time Temp Pulse Resp B/P Pulse Ox O2 Delivery O2 Flow Rate FiO2 06/17/16 05:40 36.4 65 16 109/72 96 Room Air 06/14/16 15:47 2.00 Intake and Output 06/16/16 06/16/16 06/17/16 Cumulative From/Thru 15:00 23:00 07:00 06/09/16 10:52 - 06/17/16 06:46 Intake Total 1200 ml 600 ml 7495 ml Output Total 900 ml 1300 ml 8800 ml Balance 300 ml -700 ml -1305 ml Intake Oral 1200 ml 600 ml 4620 ml IV Total 2875 ml Output Urine Total 900 ml 1300 ml 8750 ml Estimated Blood Loss 50 ml # Bowel Movements 0 0 Result Diagram: 06/16/16 0550 06/16/16 0550 Activity: Activity per PT, Ambulate with PT (weight-bear as tolerated at the left lower extremity using front wheeled walker.) Catheters: Urethral 2 Way Pisano Assessment & Plan Impression Status post day #3 left total knee arthroplasty. Patient's pain is significantly better controlled today. Cleared for discharge. Problems: Plan Patient will continue to work with physical therapy, this will continue with home health to keep pain controlled and avoid significant effort to continue outpatient physical therapy for the first 1-2 weeks until improving. Weightbearing as tolerated, gait training with front wheeled walker. Patient will continue Aspirin 325 mg by mouth twice a day for 6 weeks of DVT prophylaxis. Patient will continue to have daily Valium for anxiety as needed Pain control: Percocet 10 mg on a scheduled basis, with addition of OxyContin 10 mg twice a day for pain control. Patient may also utilize plain oxycodone in between Percocet doses to control the pain. Patient given oxycodone 5 mg tablets to take 1-2 if needed for breakthrough pain. Avoid soaking the incision underwater. You may keep covered with a gauze or bandage until the incision is not draining anymore. Patient will be discharged to home today. Patient will need follow-up at 2 weeks at [facility] with Prabha Sanchez PAC. VTE Prophylaxis: Sub-Q Enoxaparin (Lovenox 40 mg subcutaneous daily 2 weeks postop with transition to ASA 325 mg EC by mouth twice a day for 4 weeks postop her leg 6 weeks postoperative prophylaxis), SCDs (right lower extremity only), ALETHA Carreno (bilateral thigh-high) Dontrell Edmondson PA-C Jun 17, 2016 10:41
--- NOTE | 2016-06-17 10:42 | PCM.DIORTH ---
Ortho Discharge Instruction Date of Service: Jun 17, 2016 Dates of Hospitalization Date of Hospital Admission Jun 14, 2016 at 15:16 Providers Admitting Physician: Ubaldo Mckay DO Primary Care Physician: Lavonne Luis PA-C Attending Physician: Ubaldo Mckay DO Diet Discharge Diet: No restrictions Activity Left Lower Extremity: Weight Bearing as tolerated Dressing and Incisional Care Discharge Hygiene: May shower Additional Instructions Discharge Instructions Patient will continue to work with physical therapy, this will continue with home health to keep pain controlled and avoid significant effort to continue outpatient physical therapy for the first 1-2 weeks until improving. Weightbearing as tolerated, gait training with front wheeled walker. Patient will continue Aspirin 325 mg by mouth twice a day for 6 weeks of DVT prophylaxis. Patient will continue to have daily Valium for anxiety as needed Pain control: Percocet 10 mg on a scheduled basis, with addition of OxyContin 10 mg twice a day for pain control. Patient may also utilize plain oxycodone in between Percocet doses to control the pain. Patient given oxycodone 5 mg tablets to take 1-2 if needed for breakthrough pain. Avoid soaking the incision underwater. You may keep covered with a gauze or bandage until the incision is not draining anymore. Patient will be discharged to home today. Patient will need follow-up at 2 weeks at [facility] with Prabha CORMIER. Dontrell Edmondson PA-C Jun 17, 2016 10:42
--- NOTE | 2016-06-17 10:44 | PCM.DC.ORT ---
Discharge Summary Date of Service: Jun 17, 2016 Date of Hospital Admission: Jun 14, 2016 at 15:16 Date of Surgery: Jun 14, 2016 Date of Discharge: Jun 17, 2016 Reason for Hospitalization: Left knee osteoarthritis Procedures Performed: Left total knee arthroplasty Hospital Course: Patient presented to [facility] surgical suite for the procedure of left total knee arthroplasty by Dr. Ubaldo Mckay on 06/14/2016. Patient was prepped for surgery and the procedure was performed successfully, patient was discharged to PACU under stable condition, tolerated the procedure well. Once stabilized in PACU and pain well controlled, patient was admitted to the hospital floor for observation, pain control, and progression with physical therapy. The first 1-2 days the patient was able to resume a regular diet, void on their own, not having any problems with nausea or vomiting. The patient did not have any adverse falls, reactions, or events were all in the hospital. The patient began working with physical therapy on day one then progressed quite well with reasonable pain control. On day 3 the patient was able to ambulate safely on their own, and pain was controlled sufficiently to be discharged to home with home health physical therapy. We will utilize aspirin 325 mg by mouth twice a day for 6 weeks for DVT prophylaxis. The patient was discharged to home under stable condition with plan to follow- up with patient at 2 weeks for a postoperative appointment. Diagnosis at Time of Discharge Status post left total knee arthroplasty Problems: Discharge Instructions: Patient will continue to work with physical therapy, this will continue with home health to keep pain controlled and avoid significant effort to continue outpatient physical therapy for the first 1-2 weeks until improving. Weightbearing as tolerated, gait training with front wheeled walker. Patient will continue Aspirin 325 mg by mouth twice a day for 6 weeks of DVT prophylaxis. Patient will continue to have daily Valium for anxiety as needed Pain control: Percocet 10 mg on a scheduled basis, with addition of OxyContin 10 mg twice a day for pain control. Patient may also utilize plain oxycodone in between Percocet doses to control the pain. Patient given oxycodone 5 mg tablets to take 1-2 if needed for breakthrough pain. Avoid soaking the incision underwater. You may keep covered with a gauze or bandage until the incision is not draining anymore. Patient will be discharged to home today. Patient will need follow-up at 2 weeks at [facility] with Prabha Summerset PAC. ([probiotic]) Unknown Dose DAILY ([Marijuana]) INHALATION PRN Alprazolam (Xanax) 0.5 Mg Tablet 0.5 MG PO TID PRN PRN For Anxiety Duloxetine (Cymbalta) 60 Mg Capsule.dr 60 MG PO DAILY Fluticasone Propionate (Fluticasone Propionate Nasal) 16 [address] [place].susp 2 SPRAY NS BID Thyroid,Pork ([place] Thyroid) 90 Mg Tablet 90 MG PO DAILY Dontrell Edmondson PA-C Jun 17, 2016 10:44
--- NOTE | 2016-06-17 10:47 | NUR ---
Evaluation completed. Please go to "Notes" then click on "Assessments and Notes" (bottom left corner of screen). Then select appropriate discipline tab on top of screen.
--- NOTE | 2016-06-17 12:59 | NUR ---
Social Work-Discharge Data:EMR Reviewed. Pt is on day 3 of hospitalization for left knee per H&P. Pt is medically stable to discharge today. PT has seen pt and recommended home with . F2F has been signed and provided to Sumaya LOPEZ. Pt to receive [facility] PT at discharge. SW spoke with pt at bedside, pt updated and agreeable to plan. Pt to discharge home with [facility] with mom to transport via POV. Assessment:Pt who would benefit from Sumaya LOPEZ. Plan: Pt to discharge home with [facility] PT with mom to transport via POV. No other discharge needs identified at this time. Carleen Jennings MSW
--- NOTE | 2016-06-17 16:45 | NUR ---
DISCHARGE Percocet 1 tab and Oxicodone 10 mg PO has been effective for pain control. Patient rated her pain as 6/10, which is tolerable for her. Tolerating liquids PO and her diet well. Denies SOB. Ambulating with SBA and the FWW in the room. Tolerated activity well. Dressing is CDI. Voiding without any problems. IV saline lock d/cd. Discharge instructions, care notes and prescription was given to the patient and she verbalized understanding. Discharged to home with her friend and all her personal belongings. (Copy of D/C is in the chart).
[2016-06-17 18:07] VITALS: BP 120/73; PULSE 87; RESP 20; O2SAT 94
== END 2016-06-17 15:54 | disposition home health service (06) | DRG 302 ==
LOC: SAS 09:35 → OSC 15:16
PROVIDERS: ADMIT Orthopaedic Surgery; ATTEND Orthopaedic Surgery
PROC: 3E0U33Z Introduction of Anti-inflammatory into Joints, Percutaneous Approach (ICD-10-PCS; 2016-06-14)
PROC: 0SRD0J9 Replacement of Left Knee Joint with Synthetic Substitute, Cemented, Open Approach (ICD-10-PCS; principal; 2016-06-14 10:30)
DX: M17.0 Bilateral primary osteoarthritis of knee (principal); F11.20 Opioid dependence, uncomplicated